=== PATIENT | female | born 1945 | race Caucasian/White ===

== ENCOUNTER 2024-05-22 02:55 | Outpatient (CLI) | payer MEDICARE, SELFPAY | END 2024-05-22 02:56 | disposition home or self-care (01) | LOC: AMB 05-28 02:11 | PROVIDERS: Visit Provider Family Medicine | DX: U07.1 COVID-19 (principal); R53.1 Weakness; E87.1 Hypo-osmolality and hyponatremia; E87.6 Hypokalemia; I10 Essential (primary) hypertension | CPT/HCPCS: A0425; A0434 ==